=== PATIENT | female | born 1980 | race Caucasian/White ===

== ENCOUNTER 2017-10-05 19:54 | Inpatient (IN) | payer OTHER ==
[2017-10-05 20:48] VITALS: BMI 24.5
[2017-10-05 22:21] LABS: BASO # 0.1 K/uL (0.0-0.2); BASO % 0.8 % (0.0-2.0); EOS # 0.2 K/uL (0.0-0.7); EOS % 1.8 % (0.0-4.0); HEMATOCRIT 38.3 % (34.0-47.0); LYMPH # 2.1 K/uL (1.0-4.3); LYMPH % 19.9 % (20.0-40.0); MEAN CELL VOLUME 93.8 fl (81.0-99.0); MEAN CORPUSCULAR HEMOGLOBIN 30.8 pg (27.0-31.0); MEAN CORPUSCULAR HGB CONC 32.8 g/dL (33.0-37.0); MEAN PLATELET VOLUME 8.5 fl (7.2-11.7); MONO # 0.8 K/uL (0.0-0.8); MONO % 7.2 % (0.0-10.0); NEUT # 7.5 K/uL (1.8-7.0); NEUT % 70.3 % (50.0-75.0); RED CELL DISTRIBUTION WIDTH 13.1 % (11.5-14.5); WHITE BLOOD COUNT 10.7 K/uL (4.8-10.8)
--- NOTE | 2017-10-06 12:58 | OBPN ---
Datetime: 10/06/2017 12:40 IP Progress Impression: Reassuring heart rate IP Informed Consent Obtain: Vaginal Delivery; Risks, Benefits and Alternatives Discussed IP Progress Plan: Continue present management; Induction; Cervical Ripening Pool Provider: Negative Membranes, Provider: Intact Contraction Comments Provider: 1-3m FHR - Baseline A Provider: 150 Presentation-Admit: Vertex IP Progress Note Comment: Cervidl removed. She feels some CTX pain since yesterday. Discussion about continued IOL .. will start Cytotec NICHD Accel Fetus A IP Provider: [id number] FHR Category Provider Fetus A: Category I NICHD Variability Prov Fetus A: Moderate 6-25bpm Dilatation, Provider: 1 Effacement, Provider: long Station, Provider: high NICHD Decel Fetus A IP Provider: None Datetime: 10/05/2017 22:14 Gestation - Est Wks by US: 39.1 Vital Signs Provider: Reviewed
[2017-10-07] MEDS: Lactated Ringer's 1,000 ML IV SCH ×4 (06:20→15:04)
[2017-10-07] MEDS ORDERED: Oxytocin 30 UNITS in Sodium Chloride 0.9% 500 ML IV ONE ×3 (11:30→18:44)
[2017-10-07] MEDS ORDERED: ceFAZolin IV 1 gm in Dextrose 1 GM/50 ML BAG IVPB ONE (14:26)
[2017-10-07] MEDS ORDERED: ePHEDrine 50 mg/ml Inj ONE (17:08)
[2017-10-07] MEDS ORDERED: Phenylephrine 10 mg/ml Inj ONE (17:08)
[2017-10-07] MEDS ORDERED: Morphine 1 mg/ml preservative-free Inj(Duramorph) ONE (17:09)
[2017-10-07] MEDS ORDERED: DiphenhydrAMINE 50 mg/ml Inj IVP PRN ×2 (18:39→22:09)
[2017-10-07] MEDS ORDERED: Oxycodone/Acetaminophen 5/325 mg Tab PO PRN ×3 (18:44→22:09)
[2017-10-07] MEDS ORDERED: Simethicone 80 mg Chewtab PO SCH (22:00)
[2017-10-07] MEDS ORDERED: Lactated Ringer's 1,000 ML IV SCH (22:09)
[2017-10-08] MEDS: Simethicone 80 mg Chewtab PO SCH ×4 (03:44→21:51)
[2017-10-08 08:14] LABS: HEMATOCRIT 34.7 % (34.0-47.0); MEAN CORPUSCULAR HEMOGLOBIN 31.1 pg (27.0-31.0); MEAN CORPUSCULAR HGB CONC 33.1 g/dL (33.0-37.0); RED CELL DISTRIBUTION WIDTH 13.2 % (11.5-14.5); WHITE BLOOD COUNT 13.5 K/uL (4.8-10.8)
--- NOTE | 2017-10-08 08:45 | OBDS ---
DELIVERY PERSONNEL Delivery Doctor: Chris Arthur MD Playroom Attendant: Jonna Bran RN Anesthesiologist: Gail Muir MD Resident: Johnathan LAZO MATERNAL INFORMATION Delivery Anesthesia: Spinal Medications in Delivery: pitocin 30 units in 500 ml LR Estimated Blood Loss (ml): 800 Placenta Cultured: No Maternal Complications: None; Other Provider Comments: Primary LFT C/S Viable infant female with apgars 9/9, normal uterus, normal tubes and ovaries bilaterally. EBL 800cc IVF 800cc LR UO 200cc clear No complications Pt tolerated procedure well. LABOR SUMMARY EDC: 10/11/2017 00:00 No. Babies in Womb: 1 Attempted: No Labor Anesthesia: None LABOR INFORMATION Reason for Induction: Other Reason for Induction Other: IVF Cervical Ripening Agents: Cytotec @ (Annotations: 50 mcg PO ) Oxytocin: N/A Group B Beta Strep: Positive Antibiotics # of Doses: 2 Antibiotics Time of Last Dose: 1738 Steroids Given: None Reason Steroids Not Administered: Not Applicable MEMBRANES Membranes Rupture Method: Spontaneous Rupture of Membranes: 10/07/2017 14:37 Length of Rupture (hrs): 3.45 Amniotic Fluid Color: Clear Amniotic Fluid Amount: Moderate Amniotic Fluid Odor: None STAGES OF LABOR Stage 3 hrs: 0 Stage 3 min: 1 CSECTION DELIVERY Primary Indication: Failed Induction CSection Urgency: Elective CSection Incidence: Primary Labor: Labor Elective: Elective CSection Incision: Lower Uterine Transverse BABY A INFORMATION Delivery Date/Time: 10/07/2017 18:04 Method of Delivery: Born in Route : No : N/A Forceps: N/A Vacuum Extraction: N/A Shoulder Dystocia : No SHOULDER DYSTOCIA BABY A Delivery Date/Time: 10/07/2017 18:04 PRESENTATION/POSITION BABY A Presentation: Cephalic Cephalic Presentation: Vertex Breech Presentation: N/A PLACENTA INFORMATION BABY A Placenta Delivery Time : 10/07/2017 18:05 Placenta Method of Delivery: Spontaneous Placenta Status: Delivered SCORES BABY A Heart Rate 1 min: >100 bpm Resp Effort 1 min: Good Cry Reflex Irritability 1 min: Cough or Sneeze or Pulls Away Muscle Tone 1 min: Active Motion Color 1 min: Body [place], Extremities Blue Resuscitation Effort 1 min: N/A SCORE 1 MIN: 9 Heart Rate 5 min: >100 bpm Resp Effort 5 min: Good Cry Reflex Irritability 5 min: Cough or Sneeze or Pulls Away Muscle Tone 5 min: Active Motion Color 5 min: Body [place], Extremities Blue Resuscitation Effort 5 min: N/A SCORE 5 MIN: 9 INFORMATION BABY A Gestational Age at Delivery: 39.3 Gestational Status: Term Infant Outcome : Liveborn Condition : Stable Sex: Female IDENTIFICATION/MEDS BABY A ID Band Number: [id number] ID Band Location: Left Leg; Left Arm WEIGHT/LENGTH BABY A Birthweight (gms): 3700 Weight (lb): 8 Weight (oz): 2 CORD INFORMATION BABY A No. Cord Vessels: 3 Nuchal Cord : N/A Cord Blood Taken: Yes
[2017-10-08] MEDS: Oxycodone/Acetaminophen 5/325 mg Tab PO PRN ×3 (11:08→23:14)
--- NOTE | 2017-10-08 11:09 | OBPPN ---
Datetime: 10/08/2017 11:00 PP Pain Prov: Within normal limits PP Nausea Prov: Denies PP Flatus Prov: Yes PP Breasts Prov: Normal PP Heart Prov: Normal PP Lungs Prov: Normal PP Abdomen/Uterus Prov: Normal PP Lochia Prov: Normal PP Vulva/Perineum Prov: Normal PP CVA Tenderness Prov: Normal PP Extremities Prov: Normal PP Comments Phys Exam Prov: Incision clean/dry/intact PP Impression Prov: Normal progression PP Plan Prov: Continue present management PP Progress Note Prov: Patient denies fever, chills, SOB, N/V, tolerating Po diet, ambulating/voidin g well, mild lochia A/P POD#1 1. Reg diet 2. Percocet/Motrin prn pain 3. Encourage ambulation/ Vital Signs Provider PP: Reviewed; Within Normal Limits
--- NOTE | 2017-10-08 13:57 | OP ---
PROCEDURE DATE: 10/07/2017 PREOPERATIVE DIAGNOSIS: Failed induction of labor. POSTOPERATIVE DIAGNOSIS: Failed induction of labor. PROCEDURE: Primary low-flap transverse section via Pfannenstiel incision. OPERATIVE FINDINGS: Viable infant female with Apgars of 9 and 9 at 1 and 5 minutes respectively. Normal uterus, normal tubes and ovaries bilaterally. SURGEON: Del Arthur MD ANESTHESIA ADMINISTERED BY: Chin Muir MD TYPE OF ANESTHESIA: Spinal. ESTIMATED BLOOD LOSS: 800 mL FLUIDS: 800 mL lactated Ringer's. URINE OUTPUT: 200 mL of clear urine at the end of the procedure. COMPLICATIONS: No complications. DESCRIPTION OF PROCEDURE: The patient was taken to the operating room where spinal anesthesia was found to be adequate. The patient was prepped and draped in normal sterile fashion in the dorsal supine position with the leftward tilt. A Pfannenstiel skin incision was made with a scalpel. This was carried down through to the underlying layer of fascia with the scalpel. Midline defect was made in the fascial layer with a scalpel. The fascial incision was then extended bilaterally sharply with curved Moyer scissors. The fascial layer was from the underlying rectus muscles both bluntly and sharply with curved Moyer scissors. The rectus muscles were at the midline. The peritoneum was then identified, tented up with Ermelinda clamps x2, entered sharply with Metzenbaum scissors. This peritoneal incision was then extended superiorly and inferiorly with good visualization of the urinary bladder. Bladder blade was inserted into the abdomen. The vesicouterine peritoneum was then identified, tented up with Ermelinda clamps x2, entered sharply with Metzenbaum scissors. This peritoneal incision was then extended bilaterally with Metzenbaum scissors. The bladder flap was created digitally. The Regina retractors were placed over the urinary bladder. The uterus was incised with a scalpel. The uterine incision was extended bilaterally bluntly. The infant's head was delivered atraumatically. Nose and mouth were suctioned with bulb suction. The remainder of the was delivered without complication. The cord was clamped and cut. The infant was handed off to waiting pediatricians. The placenta was removed manually. The uterus was cleared of all clots and debris. The uterine incision was repaired with 0 Vicryl in a running, locked fashion. Second layer of the same suture was used to imbricate the first and to obtain excellent hemostasis. Reinspection of the uterine incision proved excellent hemostasis. The abdomen and pelvis were irrigated with copious amounts of warm normal saline. Reinspection of the uterine incision proved hemostasis. All instruments were removed from the patient. The peritoneal layer was closed with a running stitch of 2-0 chromic. The rectus muscle was re-approximated with a running stitch of 2-0 chromic. The facial layer was closed with a running stitch of 0 Vicryl. Subcutaneous tissue was closed with a running stitch of 3-0 plain. The skin was closed with a subcutaneous stitch of 3-0 Vicryl. The patient tolerated the procedure well. All sponge count, lap count, and needle counts were correct x2. The patient was given 1 g of Ancef just prior to the beginning of the procedure. There were no complications. The patient was taken to the recovery room awake and in stable condition. Del Arthur MD
[2017-10-09] MEDS: Oxycodone/Acetaminophen 5/325 mg Tab PO PRN (05:26)
[2017-10-09] MEDS: Simethicone 80 mg Chewtab PO SCH ×4 (05:27→22:05)
[2017-10-10] MEDS: Simethicone 80 mg Chewtab PO SCH ×3 (06:38→11:12)
[2017-10-10] MEDS: Oxycodone/Acetaminophen 5/325 mg Tab PO PRN (11:16)
--- NOTE | 2017-10-10 11:22 | OBPPN ---
Datetime: 10/10/2017 11:19 PP Pain Prov: Within normal limits PP Nausea Prov: Denies PP Flatus Prov: Yes PP Breasts Prov: Normal PP Heart Prov: Normal PP Lungs Prov: Normal PP Abdomen/Uterus Prov: Normal PP Lochia Prov: Normal PP Vulva/Perineum Prov: Normal PP CVA Tenderness Prov: Normal PP Extremities Prov: Normal PP Comments Phys Exam Prov: Fundus firm under umblicus Incision clean/dry/intact PP Impression Prov: Normal progression PP Plan Prov: Continue present management PP Progress Note Prov: Patient denies CP, no SOB, no N/v, tolerating PO diet, ambulating/voidign wel l, mild lochia, abodminal pain tolerable with meds A/P POD #3 1. DIscharge home 2. Discharge instructions reviewed IP PP Procedures: None Vital Signs Provider PP: Reviewed; Within Normal Limits
--- NOTE | 2017-10-10 11:22 | OBDCSUM ---
Datetime: 10/10/2017 09:39 Discharged to, Provider: Home Follow up at, Provider: OB Disch Instr Activity: Normal activity; May be up to bathroom; May be up for meals; May Shower Disch Instr Diet: Regular Discharge Diagnosis, Provider: Term Delivered Discharge Time: 10/10/2017 09:39 Follow up in weeks, Provider: 1 week incision check and 4-6weeks vaginal check up Disch Referrals: None Disch Activity Restrictions: Minimize stair-climbing; No sexual activity; Nothing in vagina - Interc ourse, tampons, douche
[2017-10-11 00:08] VITALS: BP 124/89; PULSE 70; RESP 20; TEMP 97.8; O2SAT 96
== END 2017-10-10 12:30 | disposition home or self-care (01) | DRG 766 ==
LOC: H.EROB2 19:54 → H.L&D 21:22 → H.OB/GYN 10-07 22:06
PROVIDERS: ADMIT Obstetrics & Gynecology Gynecology; ATTEND Obstetrics & Gynecology Gynecology
PROC: 4A1HXCZ Monitoring of Products of Conception, Cardiac Rate, External Approach (ICD-10-PCS; 2017-10-05)
PROC: 10D00Z1 Extraction of Products of Conception, Low, Open Approach (ICD-10-PCS; principal; 2017-10-07)
PROC: 3E033VJ Introduction of Other Hormone into Peripheral Vein, Percutaneous Approach (ICD-10-PCS; 2017-10-07)
DX: O61.0 Failed medical induction of labor (principal); O99.820 Streptococcus B carrier state complicating pregnancy; Z37.0 Single live birth; Z3A.39 39 weeks gestation of pregnancy